=== PATIENT | male | born 1980 | race American Indian/Alaskan Native ===

== ENCOUNTER 2017-12-09 09:01 | Day surgery (SDC) | payer OTHER ==
[2017-12-09] MEDS ORDERED: NACL BACTERIOSTATIC INFILTRATI ONE (09:03)
[2017-12-09] MEDS ORDERED: DILAUDID IV PRN (09:40)
--- NOTE | 2017-12-09 09:40 | Anesthesia Day of Surgery ---
Anesthesia Day of Surgery - Day of Surgery Patient Examined: Yes Patient H&P Reviewed: Yes Patient is NPO: Yes
--- NOTE | 2017-12-09 09:40 | Anesthesia Consultation ---
Anesthesia Consult and Med Hx Date of service: 12/09/17 - Airway Anesthetic Teeth Evaluation: Crowns ROM Head & Neck: Adequate Mental/Hyoid Distance: Adequate Mallampati Class: Class II Intubation Access Assessment: Good - Pulmonary Exam CTA: Yes - Cardiac Exam Cardiac Exam: RRR - Pre-Operative Health Status ASA Pre-Surgery Classification: ASA2 Proposed Anesthetic Plan: General - Pulmonary Hx Sleep Apnea: No (NAKUL PRE SCREEN LOW RISK) - Cardiovascular System Hx Hypertension: No - Gastrointestinal Hx Gastroesophageal Reflux Disease: Yes - Additional Comments Anesthesia Medical History Comments: urinary frequency/incontinence. chronic sinusitis
[2017-12-09] MEDS ORDERED: NACL 0.9% 1000 ML 1,000 ML ONE (09:59)
[2017-12-09] MEDS ORDERED: NACL 0.9% 1000 ML 1,000 ML IV SCH (10:00)
[2017-12-09] MEDS ORDERED: VERSED IV NR (10:00)
[2017-12-09] MEDS ORDERED: PEPCID IV NR (10:00)
[2017-12-09] MEDS ORDERED: ANCEF/STERILE WATER 2 GM/20 ML 2 GM/20 ML SYRINGE IV NR (10:00)
[2017-12-09] MEDS ORDERED: WATER FOR IRRIG STERILE IR ONE (11:28)
[2017-12-09] MEDS ORDERED: OMNIPAQUE 300 MG/50 ML (CATH LAB) IV ONE (11:28)
[2017-12-09] MEDS ORDERED: VERSED ONE (11:33)
[2017-12-09] MEDS ORDERED: SUBLIMAZE ONE (11:33)
[2017-12-09] MEDS ORDERED: DIPRIVAN 10 MG/ML IV ONE (11:34)
[2017-12-09] MEDS ORDERED: ZOFRAN ONE (11:48)
[2017-12-09] MEDS ORDERED: LASIX ONE (12:13)
--- NOTE | 2017-12-09 12:18 | Post Operative Note ---
Date of procedure: 12/09/17 Pre-op diagnosis: irritative voiding Post-op diagnosis: same Findings: tight short urethral stricture Procedure: cysto dviu rpgs Anesthesia: GETA Surgeon: MIGUEL JOSEPH Estimated blood loss: minimal Pathology: none Condition: stable Disposition: PACU
--- NOTE | 2017-12-09 12:19 | Discharge Summary ---
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
--- NOTE | 2017-12-09 13:32 | Post Anesthesia Evaluation ---
- Post Anesthesia Evaluation Patient Participated: Yes Airway Patent: Yes Stable Respiratory Function: Yes Nausea/Vomiting: No Temp > 96.8F: Yes Pain Manageable: Yes Adequeate Hydration: Yes Anesthesia Complications: No
[2017-12-09 13:58] VITALS: BP 138/78
--- NOTE | 2017-12-09 15:10 | Fluoroscopy Report ---
FLUORO RETROGRADE UROGRAPHY FLUOROSCOPY CYSTOGRAM STATIC-OR INDICATION: Microscopic hematuria. COMPARISON: None similar at this institution. FINDINGS: Procedure performed by Dr. Reyez utilizing 50 mL Omnipaque-300. Total of 11 intraoperative fluoroscopic images submitted. Fluoroscopy time 1.4 minutes. Two initial ice cream dipper images demonstrate no definite suspicious calcifications. Nonobstructive bowel gas pattern. Unremarkable bones. Subsequent bilateral retrograde urograms demonstrate no hydronephrosis or suspicious filling defect. A bladder catheter also noted with last image demonstrating urinary bladder contrast without definite suspicious filling defect, to the extent assessed. CONCLUSION: Intraoperative fluoroscopic assistance provided for bilateral retrograde pyelograms and cystoscopy, as described. Please also correlate with procedure notes. Thank you for the opportunity to participate in this patient's care.
--- NOTE | 2017-12-09 15:10 | Fluoroscopy Report ---
FLUORO RETROGRADE UROGRAPHY FLUOROSCOPY CYSTOGRAM STATIC-OR INDICATION: Microscopic hematuria. COMPARISON: None similar at this institution. FINDINGS: Procedure performed by Dr. Reyez utilizing 50 mL Omnipaque-300. Total of 11 intraoperative fluoroscopic images submitted. Fluoroscopy time 1.4 minutes. Two initial international marketing executive images demonstrate no definite suspicious calcifications. Nonobstructive bowel gas pattern. Unremarkable bones. Subsequent bilateral retrograde urograms demonstrate no hydronephrosis or suspicious filling defect. A bladder catheter also noted with last image demonstrating urinary bladder contrast without definite suspicious filling defect, to the extent assessed. CONCLUSION: Intraoperative fluoroscopic assistance provided for bilateral retrograde pyelograms and cystoscopy, as described. Please also correlate with procedure notes. Thank you for the opportunity to participate in this patient's care.
--- NOTE | 2017-12-09 15:36 | Operative Report ---
PREOPERATIVE DIAGNOSES: Severe irritative voiding symptoms, incarceration. POSTOPERATIVE DIAGNOSIS: Very tight obvious bulbous urethral stricture. PROCEDURE: Cystoscopy, direct vision internal urethrotomy, retrograde cystogram. SURGEON: Klaus Reyez MD ANESTHESIA: General. FINDINGS: This is a gentleman, who has been incarcerated, who had progressive difficulty with frequency, urgency irritative symptoms, and presents for cystoscopy. All risks and implications were discussed. DESCRIPTION OF PROCEDURE: The patient was brought to the operating room and placed on the operating table. Following induction of anesthesia, placed in lithotomy position, prepped and draped in usual sterile fashion. Cystourethroscopy showed both strictures at the bulbous urethra. We could not bypass it with the scope. Internal urethrotomy was done. Minimal bleeding. The proximal urethra was dilated. The bladder was not significantly trabeculated. Retrograde showed good filling and drainage, no persistent filling defect, no bladder lesions. No biopsies were done. The patient tolerated the procedure well. A 22 catheter was placed and confirmed on cystogram, brought to recovery in stable condition. JOB# [id number] SOFYA/JUSTIN
== END 2017-12-09 14:16 ==
LOC: OR 09:01
PROVIDERS: ATTEND Urology
DX: N35.9 Urethral stricture, unspecified (principal); K21.9 Gastro-esophageal reflux disease without esophagitis
CPT/HCPCS: 52275; 74420; 74430; C1758; J0690; J1940; J2250; J2405; J2704; J3010; J7030; Q9967